=== PATIENT | female | born 1935 | race Caucasian/White ===

== ENCOUNTER 2020-04-26 23:49 | Emergency (ER) | payer SELFPAY ==
[~2020-04-26] VITALS: Ht 162.6 cm; Wt 63.5 kg
[2020-04-26 23:50] VITALS: BP 141/80
[2020-04-26] MEDS ORDERED: XANAX0.25 MG ORAL (23:57)
[2020-04-27] MEDS ORDERED: XANAX0.5 MG ORAL (00:14)
[2020-04-27] MEDS ORDERED: ALPRAZolam 0.5mg tab ORAL ONE (00:15)
--- NOTE | 2020-04-27 00:15 | Emergency Room Report ---
History of Present Illness General Chief Complaint: General Complaint Source: Patient Present Illness [facility] This is an 85-year-old female with a history of anxiety and high blood pressure. She presents with chief complaint of anxiety. She says she is visiting from [place]. She presents with chief complaint of feeling anxious because she has been out of her Xanax for last 2 days. She did not know what happened with her medication. Denies suicidal thoughts homicidal thought. No nausea no vomiting. No fever chills. Cannot sleep for the last 2 days because of her lack of Xanax. Denies any other complaint. 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 Patient History Past Medical History: see triage record, old chart reviewed, HTN Past Surgical History: other Pertinent Family History: none Social History: Denies: smoking Now: No Immunizations: other Reviewed Nursing Documentation: PMH: Agreed; PSxH: Agreed Nursing Documentation-PMH Past Medical History: No History, Except For Hx Hypertension: Yes History Of Psychiatric Problem: Yes - anxiety Review of Systems Eye: Denies: eye pain, blurred vision ENT: Denies: ear pain, nose congestion, throat swelling Respiratory: Denies: cough, shortness of breath Cardiovascular: Denies: chest pain, palpitations Gastrointestinal: Denies: abdominal pain, diarrhea, nausea, vomiting Musculoskeletal: Denies: back pain, joint pain Skin: Denies: rash Psychiatric: Reports: anxiety Neurological: Denies: headache, numbness Endocrine: Denies: increased thirst, increased urine Hematologic/Lymphatic: Denies: easy bruising All Other Systems: negative except mentioned in HPI Physical Exam Vital Signs Date Time Temp Pulse Resp B/P (MAP) Pulse Ox O2 Delivery O2 Flow Rate FiO2 04/26/20 23:50 98.0 86 18 141/80 100 Room Air Vitals normal Sp02 EP Interpretation: reviewed, normal General Appearance: well appearing, no apparent distress, alert Head: normocephalic, atraumatic Eyes: bilateral eye PERRL, bilateral eye EOMI ENT: hearing grossly normal, normal pharynx Neck: full range of motion, supple, no meningismus Respiratory: chest non-tender, lungs clear, normal breath sounds Cardiovascular #1: regular rate, rhythm, no murmur Gastrointestinal: normal bowel sounds, non tender, no mass, no organomegaly, no bruit, non-distended Musculoskeletal: back normal, normal range of motion, gait/station normal Psychiatric: anxious Medical Decision Making Diagnostic Impression: Primary Impression: Anxiety ER Course Patient presents with anxiety. I spoke with her son on the phone. He is moving her from [place] to [place] to live with them. She had a prescription for Ativan a week ago. Because patient was not familiar with it, she has been taking it. She is scheduled to see Dr. Liliana Rouse at [facility] on April 30. Will write prescription for Xanax for a week. No suicidal thoughts homicidal thought. Will discharge home. Last Vital Signs Date Time Temp Pulse Resp B/P (MAP) Pulse Ox O2 Delivery O2 Flow Rate FiO2 04/26/20 23:52 97.3 110 18 140/78 (98) 100 Room Air Status: improved Disposition: HOME, SELF-CARE Condition: Stable Scripts Alprazolam* (XANAX*) 0.5 Mg Tablet 0.5 MG ORAL QHS, #7 TAB Prov: Twan Ocasio MD 04/27/20 Additional Instructions: Follow-up with your doctor as scheduled on April 30. There is prescription for lorazepam (Ativan) that was picked up on April 18. This is a substitute for Xanax. Return if symptoms worsen. Twan Ocasio MD Apr 27, 2020 00:15
[2020-04-27 00:43] VITALS: BP 136/89
== END 2020-04-27 00:43 | disposition home or self-care (01) ==
LOC: EDBD 23:49 → EMR 23:59
DX: F41.9 Anxiety disorder, unspecified (principal); I10 Essential (primary) hypertension
CPT/HCPCS: 99282

== ENCOUNTER 2020-08-15 09:40 | Emergency (ER) | payer MEDICARE, OTHER ==
[~2020-08-15] VITALS: Ht 167.6 cm; Wt 86.2 kg
[~2020-08-15 09:40] MED LIST: XANAX0.25 MG ORAL; XANAX0.5 MG ORAL
[2020-08-15 10:23] VITALS: BP 153/84
[2020-08-15] MEDS ORDERED: Lisinopril 10mg tab ORAL ONE (10:30)
[2020-08-15] MEDS ORDERED: LISINOPRIL10 MG ORAL (10:50)
--- NOTE | 2020-08-15 10:50 | Emergency Room Report ---
History of Present Illness General Chief Complaint: General Complaint Source: Patient Present Illness HPI 85-year-old -[place] female with past medical history of hypertension presents to the emergency department with "high blood pressure". Patient states that her doctor has her on amlodipine 10 mg daily and she took her medications this morning. Despite this, she was noted to have 1 elevated blood pressure reading this morning which prompted her to come to the ER for further evaluation. She denies any headache, chest pain, abdominal pain, shortness of breath, nausea, vomiting, diarrhea, back pain, bloody stools or urine. I have also spoken with her son who states that she just saw her primary care doctor last week who said everything was fine. Patient is requesting an additional medication to take on top of her amlodipine.. She denies any recent trauma, syncope, or falls. The patient's symptoms were gradual onset, severity was moderate, duration since this morning. Quality: Denies pain Past medical history: Hypertension Past surgical history: Denies Smoking: Denies Alcohol use: Denies Drug use: Denies Review of systems: CONST: No fevers or chills, No night sweats PULMONARY: No productive cough, No shortness of breath CARDIAC: No chest pain, No palpitations GI: No vomiting, No diarrhea , No melena_or_BRBPR : No dysuria, No hematuria, No discharge NEURO: No new_focal_weakness_or_numbness, No confusion, No vision changes 14 point Review of Systems is otherwise negative except per HPI Physical Exam: GENERAL: Awake_alert_ nontoxic, no acute distress Spo2 95% on RA -normal EYES: Extraocular muscles are intact. Conjunctivae clear. Lids without swelling ENT: External nose and ear normal_in_appearance. Oropharynx clear. Head_atraumatic, Moist_oral_mucosa NECK: No JVD. No meningismus. No thyromegaly. Supple. Trachea midline RESP: Normal respiratory effort. Symmetric rise. No stridor. Clear_to _auscultation_No_rales_No_wheezes CARDIAC: Regular rate and regular rhytm. No_significant pedal edema. ABDOMEN: Soft. Nondistended. Nontender_No_rebound_or_guarding. MSK: Normal muscle tone, without rigidity. Extremities without asymmetric deformity or swelling. SKIN: Warm and dry. No visible cyanosis or pallor NEUROLOGIC: Alert, oriented x3. Motor_and_sensation_grossly_intact. No truncal ataxia. Gait_normal Psych: Normal mood and affect, normal judgment and insight - COORDINATION OF CARE Case was discussed with: Patient, patient's family Medical Decision Making/Plan: Differential diagnosis includes essential hypertension, malignant hypertension, hypertensive emergency, end-organ damage (such as renal failure, cardiac ische kate, pulmonary edema, hypertensive encephalopathy, intracranial hemorrhage, among others), medication noncompliance, among others. Patient is alert and oriented, no neuro deficits, no severe headache, no evidence of hypertensive encephalopathy or intracranial bleeding. No volume overload, chest pain, or shortness of breath, no evidence of cardiac ischemia or CHF. On history and exam , the patient exhibits no features of end-organ damage. They have no no chest pain, shortness of breath, or evidence of volume overload. The patient was given a new prescription for lisinopril to take in addition to her amlodipine and appears to be stable for discharge home, and blood pressure recheck with their PMD in 1-2 days as instructed. Son is at bedside. All instructions were discussed. He feels comfortable with discharge at this time with close outpatient follow-up (Dr Olson, Appt tuesday) Allergies: Coded Allergies: No Known Allergies (Unverified , 04/26/20) COVID-19 Screening Contact w/high risk pt: No Experienced COVID-19 symptoms?: No COVID-19 Testing performed CARBIDER: No Nursing Documentation-PMH Hx Hypertension: Yes Physical Exam Vital Signs Date Time Temp Pulse Resp B/P (MAP) Pulse Ox O2 Delivery O2 Flow Rate FiO2 08/15/20 10:12 97.9 105 18 166/97 (120) 94 Room Air Sp02 EP Interpretation: reviewed, normal Medical Decision Making Diagnostic Impression: Primary Impression: HTN (hypertension) Last Vital Signs Date Time Temp Pulse Resp B/P (MAP) Pulse Ox O2 Delivery O2 Flow Rate FiO2 08/15/20 10:34 166/89 08/15/20 10:23 98.0 89 18 100 Room Air Disposition: HOME, SELF-CARE Admit Decision Time: 10:50 Condition: Stable Scripts Lisinopril* (LISINOPRIL*) 10 Mg Tablet 10 MG ORAL DAILY for Hypertension for 7 Days, #7 TAB Prov: Sherie Harris D.O. 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 Eat less salt. Follow-up with your doctor sooner if your condition requires a more timely clinical reevaluation. Return to the emergency department immediately if you feel that your condition is worsening or if you have any new or concerning symptoms. Review your discharge instructions and take any prescriptions given as instructed. [facility] PROVIDES FREE OR LOW-COST HEALTH SERVICES TO PEOPLE WHO CAN SHOW PROOF THAT THEY LIVE IN [facility]. TO FIND MORE CLINICS PARTNERED WITH [facility] TO PROVIDE SERVICE, PLEASE CALL . Sherie Harris D.O. Aug 15, 2020 10:50
[2020-08-15 10:54] VITALS: BP 150/89
== END 2020-08-15 11:23 | disposition home or self-care (01) ==
LOC: EMR 10:26
DX: I10 Essential (primary) hypertension (principal); Z79.899 Other long term (current) drug therapy
CPT/HCPCS: 96360; 99284; J7030